=== PATIENT | female | born 1965 | race Caucasian/White ===

== ENCOUNTER 2018-10-24 03:27 | Emergency (ER) | payer OTHER ==
--- OUTSIDE RECORDS SUMMARY | 2018-10-24 03:30 | XMS REPORT | Clinical Summary ---
:1965 Author Organization [facility] Address [address] [place] [address] Care Team Providers Name Role Phone Asked, No Pcp Primary Care Provider Unavailable Allergies Active Allergy Reactions Severity Noted Date Comments Penicillins Rash Medium 08/28/2016 Medications Not on file Active Problems Not on file Social History Tobacco Use Types Packs/Day Years Used Date Never Assessed Sex Assigned at Date Recorded Not on file Job Start Date Occupation Industry Not on file Not on file Not on file Travel History Travel Start Travel End No recent travel history available. Last Filed Vital Signs Not on file Plan of Treatment Health Maintenance Due Date Last Done Comments CERVICAL CANCER SCREENING 01/15/1984 BREAST CANCER SCREENING 2013 COLON CANCER SCREENING 2013 SHINGLES VACCINES (1 of 2) 2013 INFLUENZA VACCINE 04/30/2018 Results Not on fileafter 10/23/2017 Insurance Payer Benefit Plan / Group Subscriber ID Type Phone Address AETNA AETNA HMO,POS,EPO, MC/EC xxxxxxxxxx HMO Advance Directives Patient has advance care planning documents on file. For more information, please contact:[phone] [place] [address]
--- NOTE | 2018-10-24 04:19 | ER ---
Nurse's Notes [facility] Name: Ashley Brewer Age: 53 yrs Sex: Female : 1965 Arrival Date: 10/24/2018 Time: 03:29 Bed 5 Private MD: Sonido Lai T Diagnosis: Other cirrhosis of liver-obstructive jaundice, liver failure;Cholelithiasis;Abdominal tenderness;Ascites;Elevated white blood cell count;Alcoholic cirrhosis of liver;Unspecified kidney failure;Hypokalemia;Hypomagnesemia;Acute pancreatitis;Hypo-osmolality and hyponatremia Presentation: 10/24 03:39 Presenting complaint: Patient states: she is seeing Dr Quinones for cirrhosis and she has bb an appointment with Dr Morse a liver specialist next week but her abdominal pain has gotten increasingly worse until now she cannot tolerate it. Transition of care: patient was not received from another setting of care. Onset of symptoms is unknown. Risk Assessment: Do you want to hurt yourself or someone else? Patient reports no desire to harm self or others. Initial Sepsis Screen: Does the patient meet any 2 criteria? No. Patient's initial sepsis screen is negative. Does the patient have a suspected source of infection? No. Patient's initial sepsis screen is negative. Care prior to arrival: None. 03:39 Method Of Arrival: Ambulatory bb 03:39 Acuity: FERMIN 2 bb Historical: - Allergies: 03:43 PENICILLINS; bb - Home Meds: 03:43 unknown steroid [Active]; bb - PMHx: 03:43 Cirrhosis; bb - PSHx: 03:43 Appendectomy; bb - Immunization history:: Adult Immunizations up to date. - Social history:: Smoking status: Patient/guardian denies using tobacco, Patient uses alcohol, states she has not drank alcohol since Saturday or Saturday. - Ebola Screening: : No symptoms or risks identified at this time. - Family history:: not pertinent. Screenin:00 Abuse screen: Denies threats or abuse. Nutritional screening: No deficits noted. ea Tuberculosis screening: No symptoms or risk factors identified. Fall Risk IV access (20 points). Assessment: 03:58 General: Appears uncomfortable, Behavior is appropriate for age. Pain: Complains of ea pain in abdomen. Neuro: Level of Consciousness is awake, alert, obeys commands, Oriented to person, place, time, situation. Respiratory: Airway is patent Respiratory effort is even, unlabored, Respiratory pattern is regular, symmetrical. GI: Abdomen is distended, noted to have ascites, Bowel sounds present X 4 quads. Abdomen is tender to palpation X 4 quads. Derm: Skin is dry, Skin is jaundiced, Skin temperature is warm. 04:00 Reassessment: Patient and/or family updated on plan of care and expected duration. Pain ea level reassessed. Awaiting on lab results. 05:44 Reassessment: Patient and/or family updated on plan of care and expected duration. Pain ea level reassessed. Pt alert and oriented x 4. Respirations even and unlabored, chest expansions even and symmetrical. Pt taken to CT. 05:45 Reassessment: Report called to Joaquim BRAVO at [facility]. ea 06:15 Reassessment: Patient and/or family updated on plan of care and expected duration. Pain ea level reassessed. Pt resting with eyes closed, respirations even and unlabored. Chest expansions even and symmetrical. Pt complaining of pain, verbal order obtained, medication administered. [facility] at facility for transfer, report given to EMS. 06:36 Reassessment: Patient and/or family updated on plan of care and expected duration. Pain ea level reassessed. Pt alert and oriented x 4, respirations even and unlabored, chest expansions even and symmetrical. Pt pain has decreased, pt left via stretcher per EMS. Tolerating well. Vital Signs: 03:43 BP 140 / 78; Pulse 54; Resp 18 S; Temp 97.5(O); Pulse Ox 96% on R/A; Weight 94.8 kg bb (R); Height 5 ft. 8 in. (172.72 cm) (R); Pain 10/10; 04:08 BP 137 / 76; Pulse 60; Resp 18; Pulse Ox 100% ; ea 05:15 BP 128 / 67; Pulse 71; Resp 18; Pulse Ox 99% on R/A; ao 06:17 BP 144 / 87; Pulse 80; Resp 18; Pulse Ox 99% ; ea 06:20 BP 126 / 90; Pulse 72; Resp 18; Pulse Ox 99% on R/A; ea 03:43 Body Mass Index 31.78 (94.80 kg, 172.72 cm) ED Course: 03:29 Patient arrived in ED. am2 03:29 Sonido Lai MD is Private Physician. am2 03:42 Bobby Stiles MD is Attending Physician[facility] 03:42 Triage completed. bb 03:43 Arm band placed on Patient placed in an exam room, on a stretcher, on pulse oximetry. bb Family accompanied patient. 03:44 Flores George, LAWRENCE is Primary Nurse. ea 03:58 Inserted saline lock: 20 gauge in right antecubital area, using aseptic technique. ea Blood collected. 04:00 Patient has correct armband on for positive identification. Placed in gown. Bed in low ea position. Call light in reach. Side rails up X 1. 04:35 Inserted saline lock: 20 gauge in left antecubital area, using aseptic technique. ao 04:41 Notified ED physician of a critical lab result(s). WBCs of 48.1 Dr Stiles notified. bb 04:55 Notified ED physician of a critical lab result(s). total bibirubin of 33.8 Dr Go villeda notified. 05:33 Notified ED physician of a critical lab result(s). Band count of 12% Dr Go villeda notified. 05:37 Dennis cath inserted, using sterile technique, 18 Fr., by pa, balloon inflated, to ao gravity drainage, urine specimen collected. 05:45 No provider procedures requiring assistance completed. Patient transferred, IV remains ea in place. Administered Medications: Discontinued: NS 0.9% 1000 ml IV at 125 ml/hr continuous 04:15 Drug: fentaNYL (PF) 25 mcg Route: IVP; Site: right antecubital; ea 04:50 Follow up: Response: No adverse reaction; Pain is decreased ea 04:17 Drug: ProTONIX 40 mg Route: IVP; Site: right antecubital; ea 05:00 Follow up: Response: No adverse reaction ea 04:20 Drug: NS 0.9% 1000 ml Route: IV; Rate: 1 bolus; Site: right antecubital; ea 05:00 Follow up: Response: No adverse reaction; IV Status: Completed infusion; IV Intake: ea 1000ml 04:33 Drug: NS 0.9% 1000 ml Route: IV; Rate: 125 ml/hr; Site: left antecubital; ea 06:40 Follow up: Response: No adverse reaction; IV Status: Completed infusion ea 04:38 Drug: Meropenem 1 grams Route: IV; Rate: per protocol; Site: right antecubital; ea 05:05 Follow up: Response: No adverse reaction; IV Status: Completed infusion; IV Intake: ea 100ml 04:56 Drug: Thiamine 100 mg Route: IV; Rate: bolus; Site: right antecubital; ea 05:50 Follow up: Response: No adverse reaction; IV Status: Completed infusion ea 04:57 Drug: Vitamin K1 10 mg Route: Sub-Q; Site: right upper arm; ea 05:50 Follow up: Response: No adverse reaction ea 05:00 Drug: Banana Bag - (NS 0.9% 1000 ml, foLIC Acid 1 mg, Thiamine 100 mg, Multivitamin 1 ea amp) Route: IV; Rate: 125 ml/hr; Site: left antecubital; 06:07 Follow up: Response: No adverse reaction; IV Status: Infusion continued upon admission ea 05:04 Drug: Magnesium Sulfate 1 grams Route: IVPB; Infused Over: 1 hrs; Site: left ao antecubital; 06:33 Follow up: Response: No adverse reaction; IV Status: Infusion continued upon transfer ea 05:14 Drug: NS 0.9% 1000 ml Route: IV; Rate: 1 bolus; Site: right antecubital; ea 06:32 Follow up: IV Status: Completed infusion; IV Intake: 1000ml ea 05:15 Drug: fentaNYL (PF) 25 mcg Route: IVP; Site: left antecubital; ao 06:00 Follow up: Response: No adverse reaction; Pain is unchanged, physician notified ea 05:17 Drug: Flagyl 500 mg Volume: 100 ml; Route: IVPB; Rate: 200 ml/hr; Infused Over: 30 ea mins; Site: right antecubital; 06:34 Follow up: Response: No adverse reaction; IV Status: Completed infusion ea 05:23 Drug: Potassium Chloride 20 mEq Route: IV; Rate: per protocol; Site: left antecubital; ao 06:08 Follow up: Response: No adverse reaction; IV Status: Infusion continued upon transfer ea 05:57 Drug: fentaNYL (PF) 25 mcg Route: IVP; Site: right antecubital; ea 06:05 Follow up: Response: No adverse reaction; Pain is unchanged, physician notified ea 06:13 Drug: fentaNYL (PF) 25 mcg Route: IVP; Site: right antecubital; ea 06:31 Follow up: Response: No adverse reaction; Pain is unchanged, physician notified ea 06:20 Drug: Dilaudid 0.5 mg Route: IVP; Site: right antecubital; ea 06:32 Follow up: Response: No adverse reaction; Pain is decreased ea Intake: 05:00 IV: 1000ml; Total: 1000ml. ea 05:05 IV: 100ml; Total: 1100ml. ea 06:32 IV: 1000ml; Total: 2100ml. ea Outcome: 04:18 ER care complete, transfer ordered by . renny 05:00 Instructed on the need for transfer. ea 06:35 Condition: stable ea 06:36 Transferred by ground EMS to [facility], Transfer form completed. ea 06:39 Patient left the ED. ea Signatures: Bobby Stiles MD MD cha Ballard, Brenda, RN RN Hair Mejia, RN RN Roya Topete Elena RN RN joe
--- NOTE | 2018-10-24 04:19 | EDPHYS ---
Physician Documentation [facility] Name: Ashley Brewer Age: 53 yrs Sex: Female : 1965 Arrival Date: 10/24/2018 Time: 03:29 Bed 5 Private MD: Sonido Lai T ED Physician Bobby Stiles HPI: 10/24 04:13 This 53 yrs old Female presents to ER via Ambulatory with complaints of renny Abdominal Pain, Jaundice. 04:13 The patient presents with abdominal pain in the epigastric area, in the upper abdomen. renny Onset: The symptoms/episode began/occurred 3 day(s) ago. The symptoms do not radiate. Associated signs and symptoms: none. The symptoms are described as constant, crampy. Modifying factors: The symptoms are alleviated by nothing, the symptoms are aggravated by movement, pressure, touching the area. Severity of pain: At its worst the pain was moderate in the emergency department the pain is unchanged. The patient has not experienced similar symptoms in the past. Historical: - Allergies: 03:43 PENICILLINS; bb - Home Meds: 03:43 unknown steroid [Active]; bb - PMHx: 03:43 Cirrhosis; bb - PSHx: 03:43 Appendectomy; bb - Immunization history:: Adult Immunizations up to date. - Social history:: Smoking status: Patient/guardian denies using tobacco, Patient uses alcohol, states she has not drank alcohol since Saturday or Saturday. - Ebola Screening: : No symptoms or risks identified at this time. - Family history:: not pertinent. ROS: 04:13 Constitutional: Negative for fever, chills, and weight loss, ENT: Negative for injury, renny pain, and discharge, Neck: Negative for injury, pain, and swelling, Cardiovascular: Negative for chest pain, palpitations, and edema, Respiratory: Negative for shortness of breath, cough, wheezing, and pleuritic chest pain, Back: Negative for injury and pain, : Negative for injury, bleeding, discharge, and swelling, MS/Extremity: Negative for injury and deformity, Neuro: Negative for headache, weakness, numbness, tingling, and seizure, Psych: Negative for depression, anxiety, suicide ideation, homicidal ideation, and hallucinations, Allergy/Immunology: Negative for hives, rash, and allergies, Endocrine: Negative for neck swelling, polydipsia, polyuria, polyphagia, and marked weight changes, Hematologic/Lymphatic: Negative for swollen nodes, abnormal bleeding, and unusual bruising. 04:13 Eyes: Positive for icterus. 04:13 Abdomen/GI: Positive for abdominal pain, nausea and vomiting, of the epigastric area, right upper quadrant and left upper quadrant. Exam: 04:13 Constitutional: This is a well developed, well nourished patient who is awake, alert, renny and in no acute distress. Head/Face: Normocephalic, atraumatic. Eyes: Pupils equal round and reactive to light, extra-ocular motions intact. Lids and lashes normal. Conjunctiva and sclera are non-icteric and not injected. Cornea within normal limits. Periorbital areas with no swelling, redness, or edema. ENT: Nares patent. No nasal discharge, no septal abnormalities noted. Tympanic membranes are normal and external auditory canals are clear. Oropharynx with no redness, swelling, or masses, exudates, or evidence of obstruction, uvula midline. Mucous membranes moist. Neck: Trachea midline, no thyromegaly or masses palpated, and no cervical lymphadenopathy. Supple, full range of motion without nuchal rigidity, or vertebral point tenderness. No Meningismus. Chest/axilla: Normal chest wall appearance and motion. Nontender with no deformity. No lesions are appreciated. Cardiovascular: Regular rate and rhythm with a normal S1 and S2. No gallops, murmurs, or rubs. Normal PMI, no JVD. No pulse deficits. Respiratory: Lungs have equal breath sounds bilaterally, clear to auscultation and percussion. No rales, rhonchi or wheezes noted. No increased work of breathing, no retractions or nasal flaring. Back: No spinal tenderness. No costovertebral tenderness. Full range of motion. Skin: Warm, dry with normal turgor. Normal color with no rashes, no lesions, and no evidence of cellulitis. MS/ Extremity: Pulses equal, no cyanosis. Neurovascular intact. Full, normal range of motion. Neuro: Awake and alert, GCS 15, oriented to person, place, time, and situation. Cranial nerves II-XII grossly intact. Motor strength 5/5 in all extremities. Sensory grossly intact. Cerebellar exam normal. Normal gait. Psych: Awake, alert, with orientation to person, place and time. Behavior, mood, and affect are within normal limits. 04:13 Eyes: Sclera: icterus. 04:13 Respiratory: Exam negative for 04:13 Abdomen/GI: Inspection: distension, Bowel sounds: normal, Palpation: moderate abdominal tenderness, Liver: no appreciated palpable abnormalities, Hernia: not appreciated. Vital Signs: 03:43 BP 140 / 78; Pulse 54; Resp 18 S; Temp 97.5(O); Pulse Ox 96% on R/A; Weight 94.8 kg bb (R); Height 5 ft. 8 in. (172.72 cm) (R); Pain 10/10; 04:08 BP 137 / 76; Pulse 60; Resp 18; Pulse Ox 100% ; ea 05:15 BP 128 / 67; Pulse 71; Resp 18; Pulse Ox 99% on R/A; ao 06:17 BP 144 / 87; Pulse 80; Resp 18; Pulse Ox 99% ; ea 06:20 BP 126 / 90; Pulse 72; Resp 18; Pulse Ox 99% on R/A; ea 03:43 Body Mass Index 31.78 (94.80 kg, 172.72 cm) bb MDM: 03:42 Patient medically screened. [facility] 04:13 Data reviewed: vital signs, nurses notes, lab test result(s), EKG, radiologic studies, [facility] CT scan, plain films, ultrasound. 10/24 03:56 Order name: Basic Metabolic Panel 10/24 03:56 Order name: CBC with Diff 10/24 03:56 Order name: Creatinine for Radiology 10/24 03:56 Order name: Hepatic Function 10/24 03:56 Order name: Lipase 10/24 04:11 Order name: Magnesium [facility] 10/24 04:11 Order name: NT PRO-BNP [facility] 10/24 04:11 Order name: PT-INR [facility] 10/24 04:11 Order name: Troponin (emerg Dept Use Only) [facility] 10/24 04:11 Order name: AMMONIA [facility] 10/24 04:11 Order name: Type And Screen [facility] 10/24 04:11 Order name: Blood Culture Adult (2) [facility] 10/24 04:11 Order name: Procalcitonin [facility] 10/24 04:11 Order name: Lactate [facility] 10/24 04:42 Order name: CBC with Automated Diff [facility] 10/24 04:42 Order name: Protime (+INR) [facility] 10/24 04:42 Order name: Urine Culture [facility] 10/24 04:53 Order name: Creatinine (Radiology Only); Complete Time: 04:56 EDLA 10/24 04:56 Order name: Basic Metabolic Panel [facility] 10/24 04:56 Order name: Liver (Hepatic) Function [facility] 10/24 04:56 Order name: Troponin (Emerg Dept Use Only) [facility] 10/24 04:56 Order name: NT PRO-BNP [facility] 10/24 04:56 Order name: Magnesium [facility] 10/24 04:56 Order name: Lipase [facility] 10/24 04:57 Order name: Ammonia; Complete Time: 04:59 [facility] 10/24 05:02 Order name: Osmolality, Serum [facility] 10/24 05:02 Order name: Urine Osmolality [facility] 10/24 05:02 Order name: Urine Sodium Random [facility] 10/24 05:03 Order name: Acetaminophen [facility] 10/24 05:03 Order name: ETOH Level [facility] 10/24 04:11 Order name: XRAY Chest (1 view) [facility] 10/24 04:11 Order name: CT Abd/Pelvis - W/Contrast: iv only [facility] 10/24 05:03 Order name: Ptt, Activated [facility] 10/24 05:03 Order name: Salicylate [facility] 10/24 05:03 Order name: Urine Drug Screen [facility] 10/24 05:09 Order name: Procalcitonin; Complete Time: 05:16 [facility] 10/24 05:15 Order name: Lactate; Complete Time: 05:16 [facility] 10/24 05:28 Order name: Manual Differential [facility] 10/24 05:29 Order name: PTT, Activated Partial Thromb [facility] 10/24 05:44 Order name: Type and Screen [facility] 10/24 05:50 Order name: Acetaminophen Level [facility] 10/24 05:50 Order name: Salicylates Level [facility] 10/24 05:53 Order name: Urine Drug Screen [facility] 10/24 05:55 Order name: UR SODIUM [facility] 10/24 06:03 Order name: Osmolality, Serum [facility] 10/24 06:04 Order name: Alcohol Serum/Plasma [facility] 10/24 06:25 Order name: Osmolality, Urine [facility] 10/24 03:56 Order name: IV Saline Lock; Complete Time: 03:56 10/24 03:56 Order name: Labs collected and sent; Complete Time: 04:03 10/24 04:11 Order name: EKG; Complete Time: 04:12 renny 10/24 04:11 Order name: Cardiac monitoring; Complete Time: 04:33 [facility] 10/24 04:11 Order name: EKG - Nurse/Tech; Complete Time: 04:33 [facility] 10/24 04:11 Order name: O2 Per Protocol; Complete Time: 04:33 [facility] 10/24 04:11 Order name: O2 Sat Monitoring; Complete Time: 04: [facility] 10/24 04:41 Order name: IV - Large Bore; Complete Time: 04:42 [facility] 10/24 04:42 Order name: Urine Dipstick-Ancillary (obtain specimen); Complete Time: 05:38 [facility] 10/24 04:42 Order name: Dennis; Complete Time: 05:38 [facility] Administered Medications: Discontinued: NS 0.9% 1000 ml IV at 125 ml/hr continuous 04:15 Drug: fentaNYL (PF) 25 mcg Route: IVP; Site: right antecubital; ea 04:50 Follow up: Response: No adverse reaction; Pain is decreased ea 04:17 Drug: ProTONIX 40 mg Route: IVP; Site: right antecubital; ea 05:00 Follow up: Response: No adverse reaction ea 04:20 Drug: NS 0.9% 1000 ml Route: IV; Rate: 1 bolus; Site: right antecubital; ea 05:00 Follow up: Response: No adverse reaction; IV Status: Completed infusion; IV Intake: ea 1000ml 04:33 Drug: NS 0.9% 1000 ml Route: IV; Rate: 125 ml/hr; Site: left antecubital; ea 06:40 Follow up: Response: No adverse reaction; IV Status: Completed infusion ea 04:38 Drug: Meropenem 1 grams Route: IV; Rate: per protocol; Site: right antecubital; ea 05:05 Follow up: Response: No adverse reaction; IV Status: Completed infusion; IV Intake: ea 100ml 04:56 Drug: Thiamine 100 mg Route: IV; Rate: bolus; Site: right antecubital; ea 05:50 Follow up: Response: No adverse reaction; IV Status: Completed infusion ea 04:57 Drug: Vitamin K1 10 mg Route: Sub-Q; Site: right upper arm; ea 05:50 Follow up: Response: No adverse reaction ea 05:00 Drug: Banana Bag - (NS 0.9% 1000 ml, foLIC Acid 1 mg, Thiamine 100 mg, Multivitamin 1 ea amp) Route: IV; Rate: 125 ml/hr; Site: left antecubital; 06:07 Follow up: Response: No adverse reaction; IV Status: Infusion continued upon admission ea 05:04 Drug: Magnesium Sulfate 1 grams Route: IVPB; Infused Over: 1 hrs; Site: left ao antecubital; 06:33 Follow up: Response: No adverse reaction; IV Status: Infusion continued upon transfer ea 05:14 Drug: NS 0.9% 1000 ml Route: IV; Rate: 1 bolus; Site: right antecubital; ea 06:32 Follow up: IV Status: Completed infusion; IV Intake: 1000ml ea 05:15 Drug: fentaNYL (PF) 25 mcg Route: IVP; Site: left antecubital; ao 06:00 Follow up: Response: No adverse reaction; Pain is unchanged, physician notified ea 05:17 Drug: Flagyl 500 mg Volume: 100 ml; Route: IVPB; Rate: 200 ml/hr; Infused Over: 30 ea mins; Site: right antecubital; 06:34 Follow up: Response: No adverse reaction; IV Status: Completed infusion ea 05:23 Drug: Potassium Chloride 20 mEq Route: IV; Rate: per protocol; Site: left antecubital; ao 06:08 Follow up: Response: No adverse reaction; IV Status: Infusion continued upon transfer ea 05:57 Drug: fentaNYL (PF) 25 mcg Route: IVP; Site: right antecubital; ea 06:05 Follow up: Response: No adverse reaction; Pain is unchanged, physician notified ea 06:13 Drug: fentaNYL (PF) 25 mcg Route: IVP; Site: right antecubital; ea 06:31 Follow up: Response: No adverse reaction; Pain is unchanged, physician notified ea 06:20 Drug: Dilaudid 0.5 mg Route: IVP; Site: right antecubital; ea 06:32 Follow up: Response: No adverse reaction; Pain is decreased ea Disposition: 10/24/18 04:18 Transfer ordered to [facility]. Diagnosis are Other cirrhosis of liver - obstructive jaundice, liver failure, Cholelithiasis, Abdominal tenderness, Ascites, Elevated white blood cell count, Alcoholic cirrhosis of liver, Unspecified kidney failure, Hypokalemia, Hypomagnesemia, Acute pancreatitis, Hypo-osmolality and hyponatremia. - Reason for transfer: Higher level of care. - Accepting physician is carlos zamora, sicu. - Condition is Fair. - Problem is new. - Symptoms are unchanged. Signatures: Dispatcher [employer] EDBobby Olivas MD MD cha Ballard, Brenda, RN Hair Chew, RN Flores Major RN LAWRENCE diaz Corrections: (The following items were deleted from the chart) 04:19 04:18 10/24/2018 04:18 Transfer ordered to [facility]. Diagnosis is renny Other cirrhosis of liver - obstructive jaundice; Cholelithiasis; Abdominal tenderness. Reason for transfer: Higher level of care. Accepting physician is carlos zamora. Condition is Fair. Problem is new. Symptoms are unchanged. renny 04:44 04:19 10/24/2018 04:18 Transfer ordered to [facility]. Diagnosis is renny Other cirrhosis of liver - obstructive jaundice; Cholelithiasis; Abdominal tenderness; Ascites. Reason for transfer: Higher level of care. Accepting physician is carlos zamora. Condition is Fair. Problem is new. Symptoms are unchanged. renny 04:55 04:44 10/24/2018 04:18 Transfer ordered to [facility]. Diagnosis is renny Other cirrhosis of liver - obstructive jaundice, liver failure; Cholelithiasis; Abdominal tenderness; Ascites; Elevated white blood cell count. Reason for transfer: Higher level of care. Accepting physician is carlos zamora. Condition is Fair. Problem is new. Symptoms are unchanged. renny 05:01 04:55 10/24/2018 04:18 Transfer ordered to [facility]. Diagnosis is renny Other cirrhosis of liver - obstructive jaundice, liver failure; Cholelithiasis; Abdominal tenderness; Ascites; Elevated white blood cell count; Alcoholic cirrhosis of liver. Reason for transfer: Higher level of care. Accepting physician is carlos zamora. Condition is Fair. Problem is new. Symptoms are unchanged. renny 05:03 05:01 10/24/2018 04:18 Transfer ordered to [facility]. Diagnosis is renny Other cirrhosis of liver - obstructive jaundice, liver failure; Cholelithiasis; Abdominal tenderness; Ascites; Elevated white blood cell count; Alcoholic cirrhosis of liver; Unspecified kidney failure; Hypokalemia. Reason for transfer: Higher level of care. Accepting physician is carlos zamora. Condition is Fair. Problem is new. Symptoms are unchanged. renny 05:06 05:03 10/24/2018 04:18 Transfer ordered to [facility]. Diagnosis is renny Other cirrhosis of liver - obstructive jaundice, liver failure; Cholelithiasis; Abdominal tenderness; Ascites; Elevated white blood cell count; Alcoholic cirrhosis of liver; Unspecified kidney failure; Hypokalemia; Hypomagnesemia. Reason for transfer: Higher level of care. Accepting physician is carlos zamora sicu. Condition is Fair. Problem is new. Symptoms are unchanged. [facility] 06:39 05:06 10/24/2018 04:18 Transfer ordered to [facility]. Diagnosis is ea Other cirrhosis of liver - obstructive jaundice, liver failure; Cholelithiasis; Abdominal tenderness; Ascites; Elevated white blood cell count; Alcoholic cirrhosis of liver; Unspecified kidney failure; Hypokalemia; Hypomagnesemia; Acute pancreatitis; Hypo-osmolality and hyponatremia. Reason for transfer: Higher level of care. Accepting physician is carlos zamora sicu. Condition is Fair. Problem is new. Symptoms are unchanged. [facility]
[2018-10-24] MEDS ORDERED: PANTOPRAZOLE 40 MG INJ ONE (04:24)
[2018-10-24] MEDS ORDERED: NA CHLORIDE 0.9% 2,000 ML ONE (04:24)
[2018-10-24] MEDS ORDERED: FENTANYL CITR 100 MCG/2 ML ONE (04:24)
[2018-10-24] MEDS ORDERED: Meropenem 1 GM/100 ML BAG ONE (04:25)
[2018-10-24 04:34] LABS: Protime INR 2.93
[2018-10-24 04:40] LABS: Absolute Lymphocytes (CBC) 1.3 K/uL (0.7-4.9); Absolute Neutrophil 39.4 K/uL (1.8-8.0); Basophils % 0.7 % (0-1.3); Hematocrit 38.7 % (36.0-45.0); Lymphocytes % 2.8 % (15.3-44.8); MPV 11.3 fL (7.6-11.3); Monocytes % 14.5 % (3.3-12.3); RBC Red Blood Cell Count 3.79 M/uL (3.86-4.86)
[2018-10-24 04:53] LABS: ALT/SGPT 45 U/L (12-78); AST/SGOT 99 U/L (15-37); Albumin 2.3 g/dL (3.4-5.0); Alkaline Phosphatase 292 U/L (45-117); BUN Blood Urea Nitrogen 35 mg/dL (7-18); Bicarbonate 20 mmol/L (21-32); Bilirubin Direct 28.9 mg/dL (0-0.2); Glucose Level 113 mg/dL (74-106); Lipase 12446 U/L (73-393); Magnesium 1.7 mg/dL (1.8-2.4); NT PRO-BNP 1502 pg/mL (<125); Potassium 3.2 mmol/L (3.5-5.1); Protein, Total 6.6 g/dL (6.4-8.2); Sodium Level 124 mmol/L (136-145); Troponin (Emerg Dept Use Only) < 0.02 ng/mL (0.0-0.045)
[2018-10-24 04:55] LABS: Bilirubin Total 33.8 mg/dL (0.2-1.0)
[2018-10-24] MEDS ORDERED: THIAMINE 200 MG/2 ML INJ ONE ×2 (04:59→05:04)
[2018-10-24] MEDS ORDERED: VITAMIN K (ADULT) 10 MG/ML ONE (05:00)
[2018-10-24] MEDS ORDERED: METRONIDAZOLE 500mg IVPB 500 MG/100 ML BAG IV ONE (05:00)
[2018-10-24] MEDS ORDERED: FOLIC ACID 5 MG/ML VIAL ONE (05:06)
[2018-10-24] MEDS ORDERED: MULTIVITAMINS 10 ML VIAL (INJ) IV ONE (05:06)
[2018-10-24] MEDS ORDERED: NA CHLORIDE 0.9% 1,000 ML ONE ×2 (05:07→05:20)
[2018-10-24] MEDS ORDERED: MAGNESIUM SULFATE 1 gm IVPB 1 GM/100 ML BAG IV ONE (05:07)
[2018-10-24] MEDS ORDERED: KCL 20 MEQ/100 mL IVPB 20 MEQ/100 ML BAG IV ONE (05:23)
[2018-10-24 05:27] LABS: Blood Morphology Comment NOT SEEN (NOT SEEN); Platelet Estimate ADEQ
[2018-10-24 05:52] LABS: Barbiturates NEGATIVE (NEGATIVE); Benzodiazepines NEGATIVE (NEGATIVE); Cocaine NEGATIVE (NEGATIVE); METHAMPHETAM NEGATIVE (NEGATIVE); Methadone NEGATIVE (NEGATIVE); Opiates NEGATIVE (NEGATIVE); Phencyclidine NEGATIVE (NEGATIVE); THC Cannibis NEGATIVE (NEGATIVE)
[2018-10-24] MEDS ORDERED: HYDROMORPHONE HCL 0.5 MG/0.5 ML INJ ONE (06:30)
[2018-10-24 07:13] VITALS: TEMP 97.5
[2018-10-24 07:16] VITALS: O2SAT 99
[2018-10-24 07:19] VITALS: BP 126/90
--- NOTE | 2018-10-24 08:22 | RAD REPORT ---
EXAM DESCRIPTION: CT - Abdomen Pelvis Wo Contrast - 10/24/2018 7:09 am CLINICAL HISTORY: Abdominal pain. ABD PAIN COMPARISON: Abdomen Exam Complete dated 10/22/2018 TECHNIQUE: CT imaging of the abdomen and pelvis was performed without contrast. Solid organ, bowel a nd vascular assessment is limited due to lack of IV and oral contrast. All CT scans are performed using dose optimization technique as appropriate and may include automated exposure control or mA/KV adjustment according to patient size. FINDINGS: Trace pleural fluid is present bilaterally with linear subsegmental atelectasis in both josefa ng bases, greater on the left. The liver is significantly enlarged with fatty infiltration noted. Several vague low-density lesions are seen in the inferior right lobe. Full assessment is quite limited due to lack of IV contrast. The spleen is mildly enlarged. Peripancreatic fluid and edema is present. Gallstones are seen in the gal lbladder. Adrenal glands appear unremarkable. Both kidneys show no evidence of hydronephrosis. No stone is seen. No bowel obstruction or free air. Mild ascites. Appendectomy. 11 mm anterolisthesis of L5 on S1 with prominent degenerative change present. IMPRESSION: Advanced fatty liver with hepatomegaly and evidence of underlying cirrhotic changes. Ful l assessment is limited due to lack of IV contrast material. Mild ascites. Cholelithiasis. Mild peripancreatic edema/fluid. If pancreatitis is a clinical possibility, correlation with amylase and lipase levels would be suggested. A limited non-contrast examination was performed as detailed.
--- NOTE | 2018-10-24 08:27 | RAD REPORT ---
EXAM DESCRIPTION: RAD - Chest Single View - 10/24/2018 4:40 am CLINICAL HISTORY: ABDOMINAL DISTENTION Chest pain. COMPARISON: CHEST SINGLE VIEW dated 11/25/2015; CHEST PA AND LAT 2 VIEW dated 11/30/2012; CHEST SINGLE VIEW dated 11/29/2012 FINDINGS: Portable technique limits examination quality. Lungs are underinflated resulting in vascular crowding. The heart is normal in size. No displaced fra ctures. IMPRESSION: Underinflated lungs.
--- NOTE | 2018-10-24 11:52 | EKG ---
Test Date: 2018-10-24 Test Time: 03:53:41 [employer] Services Professional: GEORGE MEASUREMENT RESULTS: Intervals: Rate: 54 MN: 196 QRSD: 112 QT: 436 QTc: 413 [place]: P: MN: 196 QRS: 193 T: 152 INTERPRETIVE STATEMENTS: Suspect arm lead reversal, interpretation assumes no reversal Sinus bradycardia Low voltage QRS Anterolateral infarct, age undetermined Abnormal ECG Compared to ECG 11/30/2012 07:33:01 Myocardial infarct finding now present Electronically Signed On 10-24-18 11:51:45 [employer] THER[employer]IST by Rajat Triplett
== END 2018-10-24 06:39 | disposition short-term general hospital (02) ==
LOC: ER 03:27
DX: K70.31 Alcoholic cirrhosis of liver with ascites (principal); K85.90 Acute pancreatitis without necrosis or infection, unspecified; N19 Unspecified kidney failure; K72.90 Hepatic failure, unspecified without coma; K80.20 Calculus of gallbladder without cholecystitis without obstruction; D72.829 Elevated white blood cell count, unspecified; E87.6 Hypokalemia; E83.42 Hypomagnesemia; E87.1 Hypo-osmolality and hyponatremia
CPT/HCPCS: 36415; 51702; 71045; 74176; 80048; 80076; 80307; 80320; 80329; 82140; 83605; 83690; 83735; 83880; 83930; 83935; 84145; 84300; 84484; 85025; 85610; 85730; 86850; 86900; 86901; 87040; 93005; 96361; 96365; 96367; 96368; 96372; 96375; 99285; C9113; J1170; J2185; J3010; J3411; J3430; J3475; J7030